=== PATIENT | male | born 1985 | race Caucasian/White ===

== ENCOUNTER 2023-12-26 13:27 | Emergency (ER) | payer BC, SELFPAY ==
[2023-12-26 13:31] VITALS: BP 163/96
[2023-12-26 13:37] VITALS: BMI 25.4
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
[2023-12-26] MEDS: RABAVERT RABIES VACC W-DILUENT 2.5 UNIT IM (14:10)
[2023-12-26] MEDS: HyperRAB 1650 UNIT IM (14:18)
--- NOTE | 2023-12-26 14:55 | EDRN ---
Discharge instructions given to patient by JETT Bustamante.
== END 2023-12-26 14:45 | disposition home or self-care (01) ==
LOC: EMR 13:27
PROVIDERS: EMERGENCY PHYSICIAN Student in an Organized Health Care Education/Training Program; FAMILY PHYSICIAN Family Medicine
DX: Z20.3 Contact with and (suspected) exposure to rabies (principal); Z23 Encounter for immunization
CPT/HCPCS: 99282; 90471; 96372; 90375; 90675

== ENCOUNTER 2024-01-09 15:09 | Outpatient (RCR) | payer BC, SELFPAY ==
[2023-12-30 15:29] VITALS: BP 150/81
[2023-12-30] MEDS: RABAVERT RABIES VACC W-DILUENT 2.5 UNIT IM (15:34)
[2024-01-02] MEDS: RABAVERT RABIES VACC W-DILUENT 2.5 UNIT IM (15:32)
[2024-01-02 15:36] VITALS: BP 124/65
[2024-01-09 15:15] VITALS: BP 128/83
[2024-01-09] MEDS: RABAVERT RABIES VACC W-DILUENT 2.5 UNIT IM (15:30)
== END 2024-01-10 11:28 | disposition home or self-care (01) ==
LOC: OID 15:09
PROVIDERS: ATTENDING PHYSICIAN Student in an Organized Health Care Education/Training Program; FAMILY PHYSICIAN Family Medicine
DX: Z20.3 Contact with and (suspected) exposure to rabies; Z23 Encounter for immunization
CPT/HCPCS: 90471; 90675